=== PATIENT | female | born 1955 | race Asian ===

== ENCOUNTER 2016-10-01 20:40 | Emergency (ER) | payer OTHER ==
[~2016-10-01] VITALS: Ht 167.6 cm; Wt 63.5 kg
[2016-10-01 20:45] VITALS: Ht 167.6 cm; Wt 63.5 kg
[2016-10-01 21:55] LABS: BASOPHIL # 0.1 10^3/ul (0.0-0.1); BASOPHILS % 0.9 % (0.0-2.0); EOSINOPHILS # 0.2 10^3/ul (0.0-0.5); HEMATOCRIT 40.5 % (37.0-47.0); HEMOGLOBIN 13.7 g/dl (12.0-16.0); LYMPHOCYTES # 2.1 10^3/ul (0.8-2.9); LYMPHOCYTES % 31.4 % (15.0-51.0); MEAN CORPUSCULAR HEMOGLOBIN 29.7 pg (29.0-33.0); MEAN CORPUSCULAR HGB CONC 33.8 g/dl (32.0-37.0); MEAN CORPUSCULAR VOLUME 87.7 fl (82.0-101.0); MEAN PLATELET VOLUME 9.1 fl (7.4-10.4); MONOCYTE # 0.4 10^3/ul (0.3-0.9); MONOCYTES % 6.4 % (0.0-11.0); PLATELET COUNT 311 10^3/UL (140-415); RED BLOOD COUNT 4.62 10^6/ul (4.20-5.40); RED CELL DISTRIBUTION WIDTH 12.4 % (11.5-14.5); WHITE BLOOD COUNT 6.6 10^3/ul (4.8-10.8)
[2016-10-01 22:10] LABS: CALCIUM 10.2 mg/dl (8.4-10.2); CREATININE 1.19 mg/dl (0.44-1.00); POTASSIUM 3.8 mmol/L (3.5-5.1)
[2016-10-01] MEDS ORDERED: IOHEXOL 300MG/ML 150 ML BTL ONE (22:32)
[2016-10-01] MEDS ORDERED: SOD CHLORIDE 0.9% 100 ML ONE (22:32)
[2016-10-01 22:48] LABS: T3 UPTAKE 37.3 % (23.5-40.5)
[2016-10-01 23:02] LABS: THYROID STIMULATING HORMONE 0.76 MIU/L (0.465-4.680)
--- NOTE | 2016-10-01 23:18 | RADRPT ---
PROCEDURE: CT Neck with contrast. CLINICAL INDICATION: 61-year-old female with anterior neck swelling. TECHNIQUE: The study was performed utilizing a multislice multidetector CT scanner. Direct spiral 1 mm axial sections were obtained through the neck with the use of with the use of intravenous contr ast material. 100 cc of Omnipaque 300 was utilized. Coronal and sagittal as well as maximal intens ity projection reformations were obtained. The images were reviewed on a PACS workstation. RADIATION DOSE: CTDIvol: 8.9 mGyDLP: 196.5 mGy-cm COMPARISON: No prior studies are available for comparison. FINDINGS: There is a severely enlarged mixed cystic and solid mass lesion associated with the right thyroid gl and measuring 2.9 x 3.2 x 4.0 cm (AP x TR x CC), with soft tissue, enhancing component involving the inferior aspect measuring approximate 1.9 x 1.3. There is mild inferior and lateral displacement o f the right common carotid artery without evidence of mass effect or encasement. The left thyroid g land is normal in appearance. There is no significant cervical lymphadenopathy. The nasopharynx, o ropharynx and hypopharynx are normal in appearance. There is no tongue base mass. The larynx is no rmal in appearance. The parotid and submandibular glands are normal in appearance. No enlarged cer vical lymph nodes are seen. The vascular structures are normal. The paranasal sinuses and orbits a re normal. Limited visualization of the intracranial contents is unremarkable. There are mild dege nerative changes of the cervical spine. The lung apices are normal in appearance. IMPRESSION: 1. Large cystic and solid mass lesion associated with the right thyroid gland measuring 2.9 x 3.2 x 4.0 cm. Ultrasound of the thyroid gland and/or biopsy may be helpful for further evaluation. RPTAT: HGAS .Abiel Dupree MD, MD Date Time Electronically viewed and signed by .Abiel Dupree MD, on 10/01/2016 23:18 .S/
--- NOTE | 2016-10-02 02:09 | ERD ---
ER Documentation Chief Complaint Date/Time DATE: 10/02/16 TIME: 02:06 Chief Complaint neck swelling, sore throat HPI 61-year-old female patient with a past medical history of diabetes and hypertension, status post cholecystectomy presents the ED complaining of firm nodule on the anterior neck that started intermittently for 1 month. Reports that she started to get dysphagia and odynophagia. Reports that she went to [facility] and they did an ultrasound which showed that she needed a biopsy. Denies any chest pain, wheezing, shortness of breath, abdominal pain, nausea, vomiting, headache, weakness, lethargy. ROS All systems reviewed and are negative except as per history of present illness. Allergies Allergies: Coded Allergies: allopurinol (Verified Allergy, Unknown, 10/01/16) PMhx/Soc History of Surgery: Yes (lumpectomy bilateral breasts) Anesthesia Reaction: No Hx Neurological Disorder: No Hx Cardiac Disorders: Yes (htn) Hx Psychiatric Problems: No Hx Miscellaneous Medical Probl: Yes (DM) Hx Alcohol Use: No Hx Substance Use: No Hx Tobacco Use: No Smoking Status: Never smoker Physical Exam Vitals Vital Signs Date Time Temp Pulse Resp B/P Pulse Ox O2 Delivery O2 Flow Rate FiO2 10/01/16 20:45 99.0 69 20 121/62 98 Physical Exam Const: Vkm-[id number]-gcvpcaoeo, well-nourished. In no acute distress. Head: Atraumatic, normocephalic Eyes: Normal Conjunctiva without injection. No purulent discharge. PERRL. EOMI ENT: Normal external ear. Ear canal without erythema. Tympanic membrane pearly cruz without effusion or bulging. Nasal canal clear with normal turbinates. Moist oropharynx without tonsillar exudates. Non-erythematous pharynx. Uvula midline. No drooling. No trismus. Neck: Full range of motion. No meningismus. No cervical lymphadenopathy. Anterior neck swelling - 2 cm firm nodule. Resp: Clear to auscultation bilaterally. No wheezing, rhonchi, rales, or crackles. No accessory muscle use. No retractions. Cardio: Regular rate and rhythm. No murmurs, rubs or gallops. Abd: Soft, non tender, non distended. Normal bowel sounds. No palpable masses. No rebound tenderness. No guarding. Skin: No petechiae or rashes Back: No midline tenderness. No CVA tenderness. Ext: No cyanosis, or edema. Neur: Awake and alert. Psych: Normal Mood and Affect Result Diagram: 10/01/16211910/01/162119 Results 24 hrs Laboratory Tests Test 10/01/16 21:20 White Blood Count 6.610^3/ul Red Blood Count 4.6210^6/ul Hemoglobin 13.7g/dl Hematocrit 40.5% Mean Corpuscular Volume 87.7fl Mean Corpuscular Hemoglobin 29.7pg Mean Corpuscular Hemoglobin Concent 33.8g/dl Red Cell Distribution Width 12.4% Platelet Count 39598^3/UL Mean Platelet Volume 9.1fl Neutrophils % 58.0% Lymphocytes % 31.4% Monocytes % 6.4% Eosinophils % 3.0% Basophils % 0.9% Nucleated Red Blood Cells % 0.0/100WBC Neutrophils # (Manual) 3.810^3/ul Lymphocytes # 2.110^3/ul Monocytes # 0.410^3/ul Eosinophils # 0.210^3/ul Basophils # 0.110^3/ul Nucleated Red Blood Cells # 0.010^3/ul Sodium Level 138mmol/L Potassium Level 3.8mmol/L Chloride Level 104mmol/L Carbon Dioxide Level 24mmol/L Anion Gap 14 Blood Urea Nitrogen 15mg/dl Creatinine 1.19mg/dl Glucose Level 109mg/dl Calcium Level 10.2mg/dl Thyroid Stimulating Hormone (TSH) 0.760MIU/L Free Thyroxine Index 2.76ug/ml Thyroxine (T4) 7.4ug/dl Triiodothyronine (T3) Uptake 37.3% Current Medications Medications (Trade) Dose Ordered Sig/Won Route PRN Reason Start Time Stop Time Status Last Admin Dose Admin IV Flush 10 ml 10 ml STK-MED ONCE .ROUTE 10/01/16 22:32 10/01/16 22:33 DC 10/01/16 22:44 Sodium Chloride (NS) 100 ml @ ud STK-MED ONCE .ROUTE 10/01/16 22:32 10/01/16 22:33 DC 10/01/16 22:44 Iohexol (Omnipaque 300mg/ ml) 150 ml STK-MED ONCE .ROUTE 10/01/16 22:32 10/01/16 22:33 DC 10/01/16 22:44 Procedures/MDM 61-year-old patient with no significant past medical history presents to the ED complaining of anterior neck swelling. Patient is afebrile and nontoxic- appearing. Patient has normal vital signs. A CT of soft tissue neck, CBC, BMP was ordered to further evaluate patient. CBC: No leukocytosis. No e/o of systemic infection. No e/o anemia. CMP: No e/o severe acidosis, alkalosis, renal failure, diabetic ketoacidosis, liver disease Lipase within normal limits. PROCEDURE: CT Neck with contrast. CLINICAL INDICATION: 61-year-old female with anterior neck swelling. TECHNIQUE: The study was performed utilizing a multislice multidetector CT scanner. Direct spiral 1 mm axial sections were obtained through the neck with the use of with the use of intravenous contrast material. 100 cc of Omnipaque 300 was utilized. Coronal and sagittal as well as maximal intensity projection reformations were obtained. The images were reviewed on a PACS workstation. RADIATION DOSE: CTDIvol: 8.9 mGy DLP: 196.5 mGy-cm COMPARISON: No prior studies are available for comparison. FINDINGS: There is a severely enlarged mixed cystic and solid mass lesion associated with the right thyroid gland measuring 2.9 x 3.2 x 4.0 cm (AP x TR x CC), with soft tissue, enhancing component involving the inferior aspect measuring approximate 1.9 x 1.3. There is mild inferior and lateral displacement of the right common carotid artery without evidence of mass effect or encasement. The left thyroid gland is normal in appearance. There is no significant cervical lymphadenopathy. The nasopharynx, oropharynx and hypopharynx are normal in appearance. There is no tongue base mass. The larynx is normal in appearance. The parotid and submandibular glands are normal in appearance. No enlarged cervical lymph nodes are seen. The vascular structures are normal. The paranasal sinuses and orbits are normal. Limited visualization of the intracranial contents is unremarkable. There are mild degenerative changes of the cervical spine. The lung apices are normal in appearance. IMPRESSION: 1. Large cystic and solid mass lesion associated with the right thyroid gland measuring 2.9 x 3.2 x 4.0 cm. Ultrasound of the thyroid gland and/or biopsy may be helpful for further evaluation. Patient likely needs a biopsy of her thyroid mass. She instructed to follow-up with her primary care physician for further referral for 8 years no certain specialist and a general surgeon. Patient's physical exam include lungs which were clear to auscultation and a normal pulse oximetry. Bilateral ears pearly felix. No tenderness to palpation of tragus or mastoid. Low suspicion for mastoiditis, otitis externa, otitis media. No stridor. Patient is speaking in full sentences. There is a low suspicion for pneumonia, epiglottitis, croup, sinusitis, peritonsillar abscess, hands foot mouth disease, scarlet fever, Kawasaki disease, Benito's angina, retropharyngeal abscess, meningitis, sepsis, acute abdomen or other emergent conditions. Instructed patient to return to the ED sooner for any worsening symptoms. Patient's questions were answered. Patient understood and agreed with discharge plan. Patient discharged stable. Departure Diagnosis: Primary Impression: Thyroid lump Condition: Stable Patient Instructions: Fine-Needle Thyroid Biopsy Referrals: [facility] YOU HAVE RECEIVED A MEDICAL SCREENING EXAM AND THE RESULTS INDICATE THAT YOU DO NOT HAVE A CONDITION THAT REQUIRES URGENT TREATMENT IN THE EMERGENCY DEPARTMENT. FURTHER EVALUATION AND TREATMENT OF YOUR CONDITION CAN WAIT UNTIL YOU ARE SEEN IN YOUR DOCTORS OFFICE WITHIN THE NEXT 1-2 DAYS. IT IS YOUR RESPONSIBILITY TO MAKE AN APPOINTMENT FOR FOLOW-UP CARE. IF YOU HAVE A PRIMARY DOCTOR --you should call your primary doctor and schedule an appointment IF YOU DO NOT HAVE A PRIMARY DOCTOR YOU CAN CALL OUR PHYSICIAN REFERRAL HOTLINE AT IF YOU CAN NOT AFFORD TO SEE A PHYSICIAN YOU CAN CHOSE FROM THE FOLLOWING [facility] [address] [facility] [address] [facility] [address] [facility] [address] [facility]. [facility] [address] [facility]. [facility]. [address] [facility]. [facility] YOU HAVE RECEIVED A MEDICAL SCREENING EXAM AND THE RESULTS INDICATE THAT YOU DO NOT HAVE A CONDITION THAT REQUIRES URGENT TREATMENT IN THE EMERGENCY DEPARTMENT. FURTHER EVALUATION AND TREATMENT OF YOUR CONDITION CAN WAIT UNTIL YOU ARE SEEN IN YOUR DOCTORS OFFICE WITHIN THE NEXT 1-2 DAYS. IT IS YOUR RESPONSIBILITY TO MAKE AN APPOINTMENT FOR FOLOW-UP CARE. IF YOU HAVE A PRIMARY DOCTOR --you should call your primary doctor and schedule and appointment IF YOU DO NOT HAVE A PRIMARY DOCTOR YOU CAN CALL OUR PHYSICIAN REFERRAL HOTLINE AT . IF YOU CAN NOT AFFORD TO SEE A PHYSICIAN YOU CAN CHOSE FROM THE FOLLOWING [facility] INSTITUTIONS: [facility] [id number] [place] [address] [facility] [address] [place] [address] [facility] [address] [place] [address] [facility] URGENT CARE/SPECIALTIES Additional Instructions: FOLLOW UP WITH YOUR PRIMARY CARE PHYSICIAN TOMORROW for a referral to a general surgeon for biopsy and further evaluation or ears nose throat specialist. Return to this facility if you are not improving as expected - fever, cannot swallow, shortness of breath, vomiting, etc. RISHI MARK PA-C Oct 02, 2016 02:09 RISHI MARK PA-C Oct 02, 2016 02:09
== END 2016-10-02 00:38 | disposition home or self-care (01) ==
LOC: FTE 20:40
DX: E07.9 Disorder of thyroid, unspecified (principal); E11.9 Type 2 diabetes mellitus without complications; I10 Essential (primary) hypertension
CPT/HCPCS: 36415; 70491; 80048; 84436; 84443; 84479; 85025; Q9967; Z7502; Z7610